=== PATIENT | female | born 1985 | race African-American/Black ===

== ENCOUNTER 2024-03-25 23:57 | Inpatient (IN) | payer MEDICAID ==
[~2024-03-25] VITALS: Ht 152.4 cm; Wt 42.2 kg
[2024-03-26] VITALS (11 sets, daily range): BP systolic 95–117; BP diastolic 59–86; PULSE 111–134; RESP 14–22; TEMP 36.3918–37.00296; O2SAT 96–100
[2024-03-26 00:37] LABS: BASOPHILS % 0.6 % (0.0-2.0); DIFFERENTIAL COMMENT 0; HEMATOCRIT. 41.1 % (36.0-48.0); HEMOGLOBIN. 12.8 g/dL (12.0-16.0); MEAN CORPUSCULAR HEMOGLOBIN 32.9 pg (28.0-32.0); MEAN CORPUSCULAR HGB CONC 31.2 g/dL (31.0-37.0); MEAN CORPUSCULAR VOLUME 105.5 fL (81.0-99.0); MEAN PLATELET VOLUME 9.2 fl (7.4-10.4); MONOCYTES % 6.9 % (2.0-8.0); NEUTROPHILS % 79.5 % (40.0-76.0); PLATELET 277 x1000/uL (130-400); RED CELL DISTRIBUTION WIDTH 17.2 % (11.6-14.6); WHITE BLOOD COUNT 3.9 x1000/uL (4.5-11.0)
[2024-03-26 00:38] LABS: CHLORIDE 97 mEq/L (98-107); POTASSIUM 3.4 mEq/L (3.5-5.1); SODIUM 138 mEq/L (136-145)
[2024-03-26 00:39] LABS: CALCIUM 9.2 mg/dL (8.7-10.4)
[2024-03-26 00:44] LABS: CREATININE 0.6 mg/dL (0.6-1.0); GLUCOSE 53 mg/dL (70-105)
[2024-03-26 00:45] LABS: ETHANOL BLOOD 251 mg/dL (<10)
[2024-03-26 00:46] LABS: ALANINE AMINOTRANSFERASE 86 IU/L (10-49); ALBUMIN 4.4 g/dL (3.2-4.8); ASPARTATE AMINOTRANSFERASE 288 IU/L (<34); BILIRUBIN DIRECT 0.5 mg/dL (<=3.0); BILIRUBIN TOTAL 0.9 mg/dL (0.1-1.0); PROTEIN TOTAL 7.6 g/dL (6.0-8.3)
[2024-03-26 00:54] LABS: LACTIC ACID 9.1 mmol/L (0.4-2.0)
[2024-03-26 00:55] LABS: CARBON DIOXIDE < 10 mEq/L (21-32); UREA NITROGEN BLOOD < 5 mg/dL (9-23)
[2024-03-26 01:16] LABS: HCG SCREEN NEGATIVE
[2024-03-26] MEDS: SODIUM CHLORIDE 0.9% 1,000 ML IV ONE ×2 (01:48)
[2024-03-26] MEDS: ONDANSETRON HCL 4MG/2ML INJ IV NR (02:00)
[2024-03-26] MEDS: ONDANSETRON HCL 4MG/2ML INJ IV ONE (02:03)
[2024-03-26] MEDS: FOLIC ACID 1 MG, THIAMINE HCL 100 MG, MVI, ADULT NO.1 10 ML in DEXTROSE 5% WATER 1,000 ML IV ONE (03:07)
[2024-03-26] MEDS: AZTREONAM 1 G in DEXTROSE 5% WATER 50 ML IV SCH (03:07)
[2024-03-26] MEDS: FENTANYL CITRATE/PF 50MCG/ML 2ML VIAL IV NR (03:08)
[2024-03-26] MEDS: SODIUM BICARBONATE 8.4% 50MEQ/50ML SYR IV NR ×2 (03:14→13:13)
[2024-03-26] MEDS ORDERED: LEVETIRACETAM 500MG PREMIX 100 ML IV SCH (03:30)
[2024-03-26] MEDS ORDERED: DIPHENHYDRAMINE 50MG/ML VIAL IV PRN (03:30)
[2024-03-26] MEDS ORDERED: ACETAMINOPHEN 325MG TABLET PO PRN (03:30)
[2024-03-26] MEDS ORDERED: KCL 20MEQ/100ML PREMIX 100 ML IV SCH (04:00)
[2024-03-26] MEDS: ONDANSETRON HCL 4MG/2ML INJ IV PRN (05:49)
[2024-03-26] MEDS: ACETAMINOPHEN 325MG TABLET PO PRN (05:50)
[2024-03-26 06:28] LABS: CLARITY URINE CLEAR (CLEAR); COLOR URINE YELLOW (YELLOW); GLUCOSE URINE NEGATIVE (NEGATIVE); KETONES URINE 3+ (NEGATIVE); LEUKOCYTE ESTERASE URINE NEGATIVE (NEGATIVE); NITRITE URINE NEGATIVE (NEGATIVE); OCCULT BLOOD URINE 3+ (NEGATIVE); PH URINE 5.5 (4.5-8.0); PROTEIN URINE 1+ (NEGATIVE); SPECIFIC GRAVITY URINE 1.014 (1.005-1.030)
[2024-03-26 06:42] LABS: *AMPHETAMINES SCREEN URINE NEGATIVE (NEGATIVE); *BARBITURATES SCREEN URINE NEGATIVE (NEGATIVE); *BENZODIAZEPINES SCREEN URINE NEGATIVE (NEGATIVE); *COCAINE SCREEN URINE NEGATIVE (NEGATIVE)
[2024-03-26 06:43] LABS: CANNABINOID URINE SCREEN NEGATIVE (NEGATIVE); ECSTASY MDMA SCREEN URINE NEGATIVE (NEGATIVE); METHADONE URINE SCREEN NEGATIVE (NEGATIVE); OPIATES URINE SCREEN NEGATIVE (NEGATIVE); PHENCYCLIDINE URINE SCREEN NEGATIVE (NEGATIVE)
[2024-03-26 07:12] LABS: SQUAMOUS EPITHELIAL CELL URINE 1+ /lpf (RARE/1+)
[2024-03-26 07:13] LABS: RBC URINE 0-2 /hpf (0-2); WBC URINE 0-2 /hpf (0-2)
[2024-03-26 07:14] LABS: BACTERIA URINE NONE SEEN
[2024-03-26] MEDS: KCL 20MEQ/100ML PREMIX 100 ML IV SCH ×2 (09:26→13:13)
[2024-03-26] MEDS: LEVETIRACETAM 500MG PREMIX 100 ML IV SCH (09:26)
[2024-03-26] MEDS: PANTOPRAZOLE SODIUM 40 MG/VIAL IV SCH (09:26)
[2024-03-26 10:44] LABS: CHLORIDE 96 mEq/L (98-107); POTASSIUM 2.9 mEq/L (3.5-5.1); SODIUM 135 mEq/L (136-145)
[2024-03-26 10:45] LABS: CALCIUM 7.3 mg/dL (8.7-10.4)
[2024-03-26 10:46] LABS: CARBON DIOXIDE < 10 mEq/L (21-32); INR 1.1; PROTHROMBIN TIME 12.4 sec (9.6-11.0)
[2024-03-26 10:50] LABS: CREATININE 0.7 mg/dL (0.6-1.0); GLUCOSE 390 mg/dL (70-105)
[2024-03-26 10:52] LABS: PHOSPHORUS 2.5 mg/dL (2.5-4.9)
[2024-03-26 10:53] LABS: BASOPHILS % 0.2 % (0.0-2.0); DIFFERENTIAL COMMENT 0; HEMATOCRIT. 34.4 % (36.0-48.0); HEMOGLOBIN. 10.9 g/dL (12.0-16.0); LYMPHOCYTES % 11.6 % (20.0-50.0); MEAN CORPUSCULAR HEMOGLOBIN 32.5 pg (28.0-32.0); MEAN CORPUSCULAR HGB CONC 31.5 g/dL (31.0-37.0); MEAN CORPUSCULAR VOLUME 103.2 fL (81.0-99.0); MEAN PLATELET VOLUME 9.2 fl (7.4-10.4); MONOCYTES % 6.8 % (2.0-8.0); NEUTROPHILS % 81.4 % (40.0-76.0); PLATELET 224 x1000/uL (130-400); RED BLOOD CELL COUNT 3.34 mill/uL (4.2-5.4); RED CELL DISTRIBUTION WIDTH 16.9 % (11.6-14.6); WHITE BLOOD COUNT 12.7 x1000/uL (4.5-11.0)
[2024-03-26 10:56] LABS: UREA NITROGEN BLOOD < 5 mg/dL (9-23)
[2024-03-26] MEDS: DEXT 5%/0.45% NACL 1000ML 1,000 ML IV SCH (11:28)
[2024-03-26 12:51] LABS: BG BASE EXCESS -10.8 mmol/L (-2.0-3.0); BG CARBOXYHEMOGLOBIN 0.3 % (0.5-1.5); BG DEOXYHEMOGLOBIN 2.2 % (0.0-5.0); BG FRACTION INSPIRED OXYGEN 21; BG HCO3 ACT 12.8 mmol/L (21.0-28.0); BG METHEMOGLOBIN 0.3 % (0.5-1.5); BG OXYGEN SATURATION 97.8 % (94.0-98.0); BG OXYHEMOGLOBIN 97.2 % (94.0-98.0); BG PCO2 23.1 mmHg (32.0-45.0); BG PH 7.363 (7.350-7.450); BG PO2 102.6 mmHg (83.0-108.0); BG SAMPLE SITE LEFT RADIAL; BG TOTAL HEMOGLOBIN 11.3 g/dL (12.0-16.0); BG VENT MODE ROOM AIR
[2024-03-26] MEDS: MAGNESIUM 4 G PREMIX 100 ML IV NR (13:13)
[2024-03-26] MEDS ORDERED: NALOXONE HCL 0.4MG/ML VIAL IV PRN (18:45)
[2024-03-27] VITALS (10 sets, daily range): BP systolic 99–119; BP diastolic 70–99; PULSE 89–117; RESP 13–19; TEMP 36.50292–37.66968; O2SAT 99–100
[2024-03-27 06:37] LABS: CHLORIDE 99 mEq/L (98-107); POTASSIUM 3.2 mEq/L (3.5-5.1); SODIUM 133 mEq/L (136-145)
[2024-03-27 06:40] LABS: CALCIUM 7.8 mg/dL (8.7-10.4); CARBON DIOXIDE 25 mEq/L (21-32)
[2024-03-27 06:45] LABS: CREATININE 0.7 mg/dL (0.6-1.0); GLUCOSE 282 mg/dL (70-105)
[2024-03-27 06:46] LABS: ALANINE AMINOTRANSFERASE 59 IU/L (10-49)
[2024-03-27 06:47] LABS: ALBUMIN 3.4 g/dL (3.2-4.8); ASPARTATE AMINOTRANSFERASE 142 IU/L (<34); BILIRUBIN TOTAL 1.5 mg/dL (0.1-1.0); PROTEIN TOTAL 5.8 g/dL (6.0-8.3)
[2024-03-27 06:55] LABS: UREA NITROGEN BLOOD < 5 mg/dL (9-23)
[2024-03-27 06:58] LABS: PHOSPHORUS < 0.3 mg/dL (2.5-4.9)
[2024-03-27 07:34] LABS: BASOPHILS % 0.1 % (0.0-2.0); EOSINOPHILS % 0.3 % (0.0-5.0); HEMATOCRIT. 30.6 % (36.0-48.0); HEMOGLOBIN. 10.4 g/dL (12.0-16.0); LYMPHOCYTES % 13.5 % (20.0-50.0); MEAN CORPUSCULAR HEMOGLOBIN 33.3 pg (28.0-32.0); MEAN CORPUSCULAR HGB CONC 34.1 g/dL (31.0-37.0); MEAN CORPUSCULAR VOLUME 97.9 fL (81.0-99.0); MEAN PLATELET VOLUME 9.1 fl (7.4-10.4); MONOCYTES % 6.5 % (2.0-8.0); NEUTROPHILS % 79.6 % (40.0-76.0); PLATELET 178 x1000/uL (130-400); RED BLOOD CELL COUNT 3.12 mill/uL (4.2-5.4); RED CELL DISTRIBUTION WIDTH 15.9 % (11.6-14.6); WHITE BLOOD COUNT 5.6 x1000/uL (4.5-11.0)
[2024-03-27] MEDS: KCL 20MEQ/100ML PREMIX 100 ML IV NR (11:08)
[2024-03-27] MEDS: SODIUM CHLORIDE 0.9% 1,000 ML IV SCH (11:08)
[2024-03-27] MEDS: POTASSIUM PHOSPHATE 30 MMOL in SODIUM CHLORIDE 0.9% 490 ML IV NR (11:08)
[2024-03-27] MEDS: CHLORDIAZEPOXIDE 25MG CAPSULE PO SCH (15:15)
[2024-03-27] MEDS: PANTOPRAZOLE SODIUM 40 MG/VIAL IV SCH (17:44)
[2024-03-28] VITALS: BP 107/70; PULSE 104; RESP 18; O2SAT 98
[2024-03-28 04:00] VITALS: BP 103/82; PULSE 90; RESP 15; TEMP 36.6696; O2SAT 98
[2024-03-28 05:40] LABS: CALCIUM 8.1 mg/dL (8.7-10.4); CARBON DIOXIDE 26 mEq/L (21-32); CHLORIDE 105 mEq/L (98-107); SODIUM 139 mEq/L (136-145)
[2024-03-28 05:46] LABS: GLUCOSE 84 mg/dL (70-105)
[2024-03-28 05:48] LABS: PHOSPHORUS 1.4 mg/dL (2.5-4.9)
[2024-03-28 06:14] LABS: BASOPHILS % 0.2 % (0.0-2.0); EOSINOPHILS % 0.4 % (0.0-5.0); HEMATOCRIT. 27.1 % (36.0-48.0); HEMOGLOBIN. 9.1 g/dL (12.0-16.0); LYMPHOCYTES % 17.1 % (20.0-50.0); MEAN CORPUSCULAR HEMOGLOBIN 33.2 pg (28.0-32.0); MEAN CORPUSCULAR HGB CONC 33.7 g/dL (31.0-37.0); MEAN CORPUSCULAR VOLUME 98.6 fL (81.0-99.0); MEAN PLATELET VOLUME 9.2 fl (7.4-10.4); NEUTROPHILS % 77.3 % (40.0-76.0); PLATELET 140 x1000/uL (130-400); RED BLOOD CELL COUNT 2.75 mill/uL (4.2-5.4); RED CELL DISTRIBUTION WIDTH 15.8 % (11.6-14.6); WHITE BLOOD COUNT 6.2 x1000/uL (4.5-11.0)
[2024-03-28 06:18] LABS: CREATININE 0.4 mg/dL (0.6-1.0); UREA NITROGEN BLOOD < 5 mg/dL (9-23)
[2024-03-28 06:19] LABS: POTASSIUM 2.8 mEq/L (3.5-5.1)
[2024-03-28 08:00] VITALS: BP 116/84; PULSE 92; RESP 11; TEMP 37.11408; O2SAT 100
[2024-03-28] MEDS: THIAMINE HCL 100 MG in SODIUM CHLORIDE 0.9% 49 ML IV SCH (10:35)
[2024-03-28] MEDS: POTASSIUM PHOSPHATE 30 MMOL in SODIUM CHLORIDE 0.9% 490 ML IV SCH (10:35)
[2024-03-28] MEDS: POTASSIUM CHLORIDE 20MEQ TABLET SR PO SCH (10:35)
[2024-03-28] MEDS: MORPHINE SULFATE 2 MG/ML INJ (NOT FOR IM USE) IV PRN (11:01)
[2024-03-28] MEDS: MAGNESIUM 2 G PREMIX 50 ML IV SCH (11:44)
[2024-03-28 12:00] VITALS: BP 115/87; PULSE 87; RESP 10; TEMP 36.22512
[2024-03-28 16:00] VITALS: BP 108/93; PULSE 86; RESP 10; TEMP 36.114; O2SAT 100
[2024-03-28 20:00] VITALS: BP 107/89; PULSE 99; RESP 14; TEMP 36.44736; O2SAT 100
[2024-03-28] MEDS: LEVETIRACETAM 500MG/5ML CUP PO SCH (21:11)
[2024-03-28] MEDS: PANTOPRAZOLE 40MG DR TABLET PO SCH (21:11)
[2024-03-28] MEDS: CHLORDIAZEPOXIDE 25MG CAPSULE PO SCH (21:11)
[2024-03-29] VITALS: BP 108/90; PULSE 86; RESP 12; TEMP 36.55848; O2SAT 98
[2024-03-29 04:00] VITALS: BP 113/86; PULSE 93; RESP 9; TEMP 36.3918; TEMP 36.39180; O2SAT 100
[2024-03-29 06:03] LABS: CARBON DIOXIDE 26 mEq/L (21-32); CHLORIDE 107 mEq/L (98-107); POTASSIUM 3.5 mEq/L (3.5-5.1); SODIUM 139 mEq/L (136-145)
[2024-03-29 06:04] LABS: CALCIUM 8.2 mg/dL (8.7-10.4)
[2024-03-29 06:07] LABS: CREATININE 0.3 mg/dL (0.6-1.0)
[2024-03-29 06:08] LABS: GLUCOSE 83 mg/dL (70-105)
[2024-03-29 06:11] LABS: PHOSPHORUS 2.9 mg/dL (2.5-4.9)
[2024-03-29 06:18] LABS: UREA NITROGEN BLOOD < 5 mg/dL (9-23)
[2024-03-29 08:00] VITALS: BP 106/87; PULSE 84; RESP 11; O2SAT 100
[2024-03-29] MEDS: POTASSIUM CHLORIDE 20MEQ TABLET SR PO NR (10:49)
[2024-03-29] MEDS: MAGNESIUM 2 G PREMIX 50 ML IV NR (10:50)
[2024-03-29 12:00] VITALS: BP 107/95; PULSE 95; RESP 12; O2SAT 98
[2024-03-29 16:00] VITALS: BP 96/57; PULSE 94; RESP 16; O2SAT 95
[2024-03-29 16:49] VITALS: BP 107/95; PULSE 95; TEMP 97.5; O2SAT 98
== END 2024-03-29 20:30 | disposition home health service (06) | DRG 53 ==
LOC: ER 03-26 00:15 → 5EST 03-26 03:09 → EDBEDREQ 03-26 03:11 → EDBEDREQSVC 03-26 03:55
PROVIDERS: ADMIT Internal Medicine; ATTEND Internal Medicine
PROC: 06HY33Z Insertion of Infusion Device into Lower Vein, Percutaneous Approach (ICD-10-PCS; principal; 2024-03-26)
DX: G40.901 Epilepsy, unspecified, not intractable, with status epilepticus (principal); G92.8 Other toxic encephalopathy; E87.29 Other acidosis; K76.0 Fatty (change of) liver, not elsewhere classified; E83.39 Other disorders of phosphorus metabolism; E86.0 Dehydration; F10.229 Alcohol dependence with intoxication, unspecified; E83.42 Hypomagnesemia; E87.6 Hypokalemia; Z95.828 Presence of other vascular implants and grafts; Z88.0 Allergy status to penicillin; Z83.3 Family history of diabetes mellitus
CPT/HCPCS: 36415; 36600; 74176; 80048; 80053; 80076; 80305; 80320; 81003; 82010; 82375; 82805; 83036; 83605; 83735; 84100; 84703; 85025; 97116; 97162; 99291; C1893; J1953; J2270; J2405; J2470; J3010; J3411; J3475; J3480; J3490; J7030; J7040; J7060; J7070; G0480

== ENCOUNTER 2024-09-27 06:39 | Emergency (ER) | payer MEDICAID ==
[~2024-09-27] VITALS: Ht 160 cm; Wt 55.0 kg
[2024-09-27 06:45] VITALS: O2SAT 99
[2024-09-27] MEDS: ONDANSETRON 4MG ODT PO STA (07:02)
[2024-09-27 07:22] LABS: BASOPHILS % 1.5 % (0.0-2.0); DIFFERENTIAL COMMENT 0; EOSINOPHILS % 0.2 % (0.0-5.0); HEMOGLOBIN. 12.2 g/dL (12.0-16.0); LYMPHOCYTES % 23.9 % (20.0-50.0); MEAN CORPUSCULAR HEMOGLOBIN 35.8 pg (28.0-32.0); MEAN CORPUSCULAR HGB CONC 33.7 g/dL (31.0-37.0); MEAN CORPUSCULAR VOLUME 106.1 fL (81.0-99.0); MEAN PLATELET VOLUME 8.4 fl (7.4-10.4); MONOCYTES % 13.5 % (2.0-8.0); NEUTROPHILS % 60.9 % (40.0-76.0); PLATELET 212 x1000/uL (130-400); RED BLOOD CELL COUNT 3.39 mill/uL (4.2-5.4); RED CELL DISTRIBUTION WIDTH 15.9 % (11.6-14.6); WHITE BLOOD COUNT 2.9 x1000/uL (4.5-11.0)
[2024-09-27 07:25] LABS: INR 1.1; PROTHROMBIN TIME 11.9 sec (9.6-11.0)
[2024-09-27 07:26] LABS: CARBON DIOXIDE 26 mEq/L (21-32); CHLORIDE 95 mEq/L (98-107); POTASSIUM 3.3 mEq/L (3.5-5.1); SODIUM 139 mEq/L (136-145)
[2024-09-27 07:27] LABS: CALCIUM 9.4 mg/dL (8.7-10.4)
[2024-09-27 07:32] LABS: GLUCOSE 114 mg/dL (70-105)
[2024-09-27 07:33] LABS: ALANINE AMINOTRANSFERASE 69 IU/L (10-49); ALBUMIN 4.6 g/dL (3.2-4.8); ASPARTATE AMINOTRANSFERASE 215 IU/L (<34)
[2024-09-27 07:34] LABS: BILIRUBIN DIRECT 0.5 mg/dL (<=3.0); BILIRUBIN TOTAL 1.6 mg/dL (0.1-1.0); PROTEIN TOTAL 7.8 g/dL (6.0-8.3)
[2024-09-27 08:12] LABS: CREATININE 0.5 mg/dL (0.6-1.0); UREA NITROGEN BLOOD < 5 mg/dL (9-23)
[2024-09-27 08:33] LABS: CLARITY URINE CLOUDY (CLEAR); COLOR URINE YELLOW (YELLOW); GLUCOSE URINE NEGATIVE (NEGATIVE); KETONES URINE 3+ (NEGATIVE); LEUKOCYTE ESTERASE URINE NEGATIVE (NEGATIVE); NITRITE URINE NEGATIVE (NEGATIVE); OCCULT BLOOD URINE NEGATIVE (NEGATIVE); PROTEIN URINE 2+ (NEGATIVE); SPECIFIC GRAVITY URINE 1.021 (1.005-1.030)
[2024-09-27 08:56] LABS: SQUAMOUS EPITHELIAL CELL URINE 3+ /lpf (RARE/1+)
[2024-09-27 08:57] LABS: BACTERIA URINE 2+; WBC URINE 0-2 /hpf (0-2)
[2024-09-27 08:58] LABS: RBC URINE NONE SEEN /hpf (0-2)
[2024-09-27] MEDS ORDERED: ONDA4TAB50 MT (09:14)
[2024-09-27] MEDS ORDERED: FAMO-135 MT (09:14)
[2024-09-27 10:34] VITALS: BP 135/82; PULSE 98; RESP 16; TEMP 37.1; O2SAT 99
== END 2024-09-27 10:49 | disposition home or self-care (01) ==
LOC: ER 06:39
DX: R10.13 Epigastric pain (principal); F10.90 Alcohol use, unspecified, uncomplicated; Z88.0 Allergy status to penicillin; Y90.9 Presence of alcohol in blood, level not specified
CPT/HCPCS: 99284; 76705; 80076; 80048; 81003; 81025; 83690; 85025; 85610; 36415; Q0162